=== PATIENT | male | born 1965 | race Caucasian/White ===

== ENCOUNTER 2018-10-18 14:07 | Emergency (ER) | payer OTHER ==
[~2018-10-18] VITALS: Ht 180.3 cm; Wt 80.0 kg
[2018-10-18] MEDS ORDERED: LIDOCAINE HCL 1% 20ML VIAL (Pyxis) INJ INFIL ONE (18:30)
[2018-10-18] MEDS ORDERED: TETANUS, DIPHTHERIA, PERTUSSIS VAC/PF 0.5ML (>7YR OLD) IM ONE (20:30)
[2018-10-18 22:02] VITALS: BP 117/68
== END 2018-10-18 23:11 | disposition home or self-care (01) ==
LOC: ER 14:07
DX: S01.01XA Laceration without foreign body of scalp, initial encounter (principal); V49.9XXA Car occupant (driver) (passenger) injured in unspecified traffic accident, initial encounter; Y93.89 Activity, other specified; Y92.89 Other specified places as the place of occurrence of the external cause; Y99.8 Other external cause status
CPT/HCPCS: 12034; 90471; 90715; 99284; J3490

== ENCOUNTER 2018-10-25 16:01 | Emergency (ER) | payer OTHER | END 2018-10-25 20:20 | disposition left against medical advice (07) | LOC: ER 16:01 | DX: Z48.02 Encounter for removal of sutures (principal); Z53.21 Procedure and treatment not carried out due to patient leaving prior to being seen by health care provider ==